=== PATIENT | male | born 1940 | race Asian ===

== ENCOUNTER 2019-05-02 02:06 | Inpatient (IN) | payer MEDICARE, MEDICAID ==
[2019-05-02] MEDS ORDERED: NS 0.9% 1000 ML** 1,000 ML IV ONE ×3 (02:23→12:50)
--- NOTE | 2019-05-02 02:40 | ED ---
Complex/Multi-Sys Presentation - HPI Summary HPI Summary: Pt is a 79 y/o M presenting to the ED brought in by EMS from [facility] for decreased oxygen saturation and possible fall. Per EMS, staff at [place] assumed the pt fell because he was found between two beds in his room. Staff report his SaO2 was in the 70s on room air. EMS reports SaO2 100% on 2L. Per EMS , pt denies pain. Via an card fixer, the pt states that he remembers falling. He does not quite remember what happened tonight, but he knows he fell and hit his head. He denies any myalgia or headache. The pt is not on hospice, in the area because his child works here. He is agreeable with going home if his CT scan is normal. - History Of Current Complaint Chief Complaint: EDAltMentalStatus Hx Obtained From: Patient, EMS, Power Plant Manager Onset/Duration: Gradual Onset, Lasting Hours, Resolved Timing: Hours Severity Currently: Mild Severity Initially: Mild Associated Signs And Symptoms: Negative: Headache - Allergies/Home Medications Allergies/Adverse Reactions: Allergies Allergy/AdvReac Type Severity Reaction Status Date / Time No Known Allergies Allergy Verified 11/20/14 12:38 PMH/Surg Hx/FS Hx/Imm Hx Previously Healthy: Yes Endocrine/Hematology History: Reports: Hx Diabetes Cardiovascular History: Reports: Hx Hypertension History: Reports: Other Problems/Disorders - URINARY BLEEDING LAST TUESDAY SEEN IN ER Sensory History: Reports: Hx Contacts or Glasses - GLASSES Denies: Hx Hearing Aid Opthamlomology History: Reports: Hx Contacts or Glasses - GLASSES - Surgical History Surgery Procedure, Year, and Place: surgery on prostate Hx Anesthesia Reactions: No Infectious Disease History: Yes Infectious Disease History: Reports: Hx Hepatitis - HEPATITIS C 20 YRS AGO Denies: Traveled Outside the [place] in Last 30 Days - Family History Known Family History: Negative: Diabetes - Social History Lives: [place] Alcohol Use: None Hx Substance Use: No Substance Use Type: Reports: None Hx Tobacco Use: No Smoking Status (MU): Never Smoked Tobacco Have You Smoked in the Last Year: No Review of Systems Negative: Myalgia Negative: Headache All Other Systems Reviewed And Are Negative: Yes Physical Exam - Summary Physical Exam Summary: Constitutional: Emaciated. Alert. (-) Distressed Skin: Warm, Dry, jaundiced. HENT: Normocephalic; Atraumatic Eyes: Conjunctiva normal Neck: Musculoskeletal ROM normal neck. (-) JVD, (-) Stridor, (-) Tracheal deviation Cardio: Rhythm regular, rate normal, Heart sounds normal; Intact distal pulses; Radial pulses are 2+ and symmetric. (-) Murmur Pulmonary/Chest wall: Effort normal. (-) Respiratory distress, (-) Wheezes, (-) Rales Abd: Soft, (-) tenderness, (-) Distension, (-) Guarding, (-) Rebound Musculoskeletal: (-) Edema Lymph: (-) Cervical adenopathy Neuro: Alert, Oriented x3 Psych: Mood and affect Normal Triage Information Reviewed: Yes Vital Signs On Initial Exam: Initial Vitals Temp Pulse Resp BP Pulse Ox 97 F 68 18 93/41 100 05/02/19 02:15 05/02/19 02:15 05/02/19 02:15 05/02/19 02:15 05/02/19 02:15 Vital Signs Reviewed: Yes Procedures - Sedation Patient Received Moderate/Deep Sedation with Procedure: No - Central Line Right Jugular Triple Lumen Central Venous Catheter Central Line Lumen: triple Central Line Procedure: betadine prep, sterile drapes applied, sterile dressing applied Central Line Position: internal jugular (R) Anesthesia: Lidocaine cc's of anesthesia: 3 Complications: none Central Line Post Position: sutured, good blood return, position confirmed w/ CXR Diagnostics - Vital Signs Vital Signs Temp Pulse Resp BP Pulse Ox 05/02/19 02:15 97 F 68 18 93/41 100 - Laboratory Result Diagrams: 05/02/19 04:34 05/02/19 05:55 Lab Statement: Any lab studies that have been ordered have been reviewed, and results considered in the medical decision making process. - Radiology CXR Radiology Interpretation Completed By: ED Physician Summary of Radiographic Findings: No acute process. Pending official radiology report. - CT Brain CT CT Interpretation Completed By: Radiologist Summary of CT Findings: 1. There is age-related diffuse cerebral and cerebellar volume loss and chronic microvascular ischemic disease. 2. No acute intracranial pathology. ED physician has reviewed this report. Re-Evaluation - Re-Evaluation 1st re-eval Re-Evaluation Time: 03:45 Change: Unchanged Comment: Family at bedside. They state he was treated in [place] 1 month ago, but his body did not react well to 1 week of chemotherapy. He is not on hospice , and they think that staff [facility] has not been watching him properly. The pts family would like fluid resuscitation and would prefer that the pt be admitted to the hospital. Complex Multi-Symp Course/Dx Course Of Treatment: Patient is here with hypotension from the rehabilitation for the rehabilitation facility. Patient also had a mechanical fall [address] Patient negative CT head performed. Patient had no complaints outside of mild cough. Patient appeared emaciated and jaundiced. Patient was given 2 L IV fluid with no improvement in his pressure. After patient arrived, family came and discussed his goals of care. They wanted everything but intubation and CPR. Patient had labs performed which showed worsening creatinine, TB bili , anemia, LFTs. Patient had a lactate of 3.3 which is likely due to decreased clearance but was given antibiotics empirically. Patient was given 12.5 g of albumin with no changes blood pressure. Patient had a central line placed for Levophed. Patient was admitted to the ICU - Diagnoses Provider Diagnoses: Fall, Liver cancer - Critical Care Time Critical Care Time: 75-104 min Discharge ED - Sign-Out/Discharge Documenting (check all that apply): Patient Departure - Discharge Plan Condition: Critical Disposition: ADMITTED TO [facility] Referrals: Pb Garcia MD [Primary Care Provider] - - Billing Disposition and Condition Condition: CRITICAL Disposition: Admitted to [facility] - Attestation Statements Document Initiated by Albaro: Yes Documenting Scribe: Khushi Sims Provider For Whom Albaro is Documenting (Include Credential): Tyler Cisneros MD. Scribe Attestation: Khushi Mendez scribed for Tyler Cisneros MD. on 05/02/19 at 0639. Scribe Documentation Reviewed: Yes Provider Attestation: The documentation as recorded by the Khushi fox accurately reflects the service I personally performed and the decisions made by me, Tyler Cisneros MD. Status of Scrsmith Document: Viewed Consult Consult: 527 - I spoke with Dr. Mccray who recommended waiting to speak with the gallery assistant. [phone] - I spoke with Dr. Saldivar about the pt's condition who accepts the pt to the ICU and would like Dr. Mccray to place admission orders. 38 - Dr. Mccray agrees to put in the admission orders.
[2019-05-02] MEDS ORDERED: Albumin Human 5%* 12.5 GM/250 ML BTL IV ONE ×3 (04:26→17:44)
[2019-05-02] MEDS ORDERED: Norepinephrine 16MCG/ML IVPRE* 4,000 MCG/250 ML BAG IV ONE ×2 (04:39→06:00)
[2019-05-02 04:50] LABS: ABS Lymphocytes 1.1 10^3/ul (1.0-4.8); ABS Monocytes 0.7 10^3/ul (0-0.8); ABS Neutrophils 8.8 10^3/ul (1.5-7.7); ABS Nucleated RBC 0.1 10^3/ul; Hematocrit 34 % (42-52); Hemoglobin 11.1 g/dL (14.0-18.0); Lymphocyte % 10.4 %; Mean Corpuscular HGB Conc 33 g/dL (31-36); Mean Corpuscular Hemoglobin 33 pg (27-31); Mean Corpuscular Volume 100 fL (80-94); Nucleated Red Blood Cells % 0.6; Platelet Count 159 10^3/uL (150-450); Red Blood Count 3.38 10^6 /uL (4.18-5.48); Red Cell Distribution Width 25 % (10-15); White Blood Count 10.6 10^3/uL (3.5-10.8)
[2019-05-02 04:53] LABS: INR 2.64 (0.82-1.09)
[2019-05-02 04:59] LABS: Albumin 1.9 g/dL (3.2-5.2); CO2 Carbon Dioxide 17 mmol/L (22-32); Calcium 8.1 mg/dL (8.6-10.3); Chloride 102 mmol/L (101-111); Sodium 130 mmol/L (135-145)
[2019-05-02 05:05] LABS: ALT 287 U/L (7-52); Albumin/Globulin Ratio 0.5 (1-3); Alkaline Phosphatase 740 U/L (34-104); BUN/Creatinine Ratio 33.9 (8-20); Blood Urea Nitrogen 77 mg/dL (6-24); EGFR African American 33.9 (>60); Globulin 3.6 g/dL (2-4); Glucose 84 mg/dL (70-100); Total Protein 5.5 g/dL (6.4-8.9)
[2019-05-02 05:10] LABS: Anion Gap 11 mmol/L (2-11)
[2019-05-02] MEDS ORDERED: Cefepime(*) 1 GM in NS 0.9% 50 ML* 50 ML IVPB ONE (05:20)
[2019-05-02] MEDS ORDERED: Norepinephrine 16MCG/ML IVPRE* 4,000 MCG/250 ML BAG IV SCH (06:00)
[2019-05-02] MEDS ORDERED: NS 0.9% 1000 ML** 1,000 ML IV SCH (06:45)
[2019-05-02] MEDS ORDERED: Vancomycin(*) 1,000 MG in NS 0.9% 250 ML* 250 ML IVPB ONE (08:52)
[2019-05-02 08:57] LABS: Urine Appearance Turbid; Urine Bacteria Absent (Absent); Urine Bilirubin 1+ (Negative); Urine Blood 2+ (Negative); Urine Color Amber; Urine Glucose Negative (Negative); Urine Ketones Negative (Negative); Urine Nitrite Negative (Negative); Urine Protein 1+(30 mg/dL) (Negative); Urine Red Blood Cell Trace(0-2/hpf) (Absent); Urine Specific Gravity 1.017 (1.010-1.030); Urine Squamous Epithelial Cell Present (Absent); Urine Urobilinogen Positive (Negative); Urine White Blood Cell 2+(11-20/hpf) (Absent)
[2019-05-02] MEDS ORDERED: Vancomycin per Pharmacy* NOTE FOLLOW UP SCH (09:00)
--- NOTE | 2019-05-02 10:38 | HP ---
H&P (Free Text) History and Physical: History and Physical -- Critical Care HPI: 79y M w/pmhx of DM, HTN, Hep C with Liver Cancer, had a course of chemotherapy at [facility] but not tolerated, now in [place] as DNR/DNI; he comes to hospital after fall at long-term. He was found by staff at ~2-3am, awake, on floor, no distress. Noted to have oxygen sats in 70s, and told to be hypotensive. He was sent to hospital, hypotensive 70s, not tachy, temp 96.5. He was started on sepsis protocol, given cefepime. CT abd/chest/pelvis demonstrated suspected RLL consolidation with pleural effusion. He is awake, alert. Family at bedside. He states no n/v/abd pain. No chest pain/sob. Cough+ for a few days. Decreased appetite for many weeks now. No fever/chills. In ER, started on sepsis protocol. Then started on levophed through central venous line for shock. ED/floor Course: as above ROS: negative except for pertinent positives mentioned above PMHx: DM, HTN, Hep C with Liver Cancer, had a course of chemotherapy at [facility] but not tolerated, now in NH as DNR/DNI PSHx: prostate Family History: none significant Social History: Alcohol-no, Smoking-no, Drug use-no; lives in [place], DNR/DNI as per son. Allergies: Allergies Allergy/AdvReac Type Severity Reaction Status Date / Time No Known Allergies Allergy Verified 11/20/14 12:38 Home Medications: Lisinopril TAB* [Prinivil TAB*] 5 mg PO BID 11/13/14 [History Confirmed 05/02/19 ] Finasteride [Proscar] 5 mg PO DAILY 11/15/14 [History Confirmed 05/02/19] Tele: NSR Vitals: Vital Signs Temp 96.3 F 05/02/19 09:01 Pulse 57 05/02/19 09:01 Resp 20 05/02/19 09:01 BP 89/47 05/02/19 09:01 Pulse Ox 97 05/02/19 09:01 Intake & Output 05/01/19 05/02/19 05/02/19 18:59 06:59 18:59 Intake Total 1999 Output Total 115 Balance 1999 - Weight 40.823 kg 53.6 kg Intake: IV Fluids 1999 Output: Mills 15 Residual 100 Mills 16 Fr Temperature 100 Probe O2/Vent: NC Infusions: levophed 10, NS 100cc/hr Current Medications: Cefepime HCl (Maxipime 1 Gm In Dextrose Duplex (*)) 1 gm in 50 mls @ 100 mls/ hr IV Q24HR [facility] Norepinephrine Bitartrate (Levophed 16 Mcg/Ml Premix*) 4,000 mcg in 250 mls @ 37.5 mls/hr IV .INITIAL RATE [facility]; Protocol Pharmacy Consult (Vancomycin Per Pharmacy*) 1 note FOLLOW UP .VANC PER PHARMACY [facility]; Protocol Physical Exam: Constitutional: awake, alert, no distress, no diaphoresis Head: normocephalic, atraumatic Eyes: no pallor, Icterus++ ENT: moist mucous membranes Neck: soft, supple, no jvd, no stridor CVS: normal rate, regular, no murmur Chest/Resp: bilateral air entry, no rhales, no wheeze, no rhonchi, no acc muscle use Abdomen/GI: soft, nontender, slightly firm, nondistended, BS+ Ext/Msk: warm, pulses+, no edema Skin: intact, warm Neuro: awake, alert, orientedx3, moving all extremities, no gross focal deficit Psych: normal affect Labs: Laboratory Results - last 24 hr 05/02/19 05/02/19 05/02/19 04:34 04:34 04:34 WBC 10.6 RBC 3.38 L Hgb 11.1 L Hct 34 L MCV 100 H MCH 33 H MCHC 33 RDW 25 H Plt Count 159 MPV 8.0 Neut % (Auto) 83.2 Lymph % (Auto) 10.4 Barton % (Auto) 6.3 Eos % (Auto) 0.0 Baso % (Auto) 0.1 Absolute Neuts (auto) 8.8 H Absolute Lymphs (auto) 1.1 Absolute Monos (auto) 0.7 Absolute Eos (auto) 0.0 Absolute Basos (auto) 0.0 Absolute Nucleated RBC 0.1 Nucleated RBC % 0.6 INR (Anticoag Therapy) Sodium 130 L Potassium TNP Chloride 102 Carbon Dioxide 17 L Anion Gap 11 BUN 77 H Creatinine 2.27 H Est GFR ( Amer) 33.9 Est GFR (Non-Af Amer) 28.0 BUN/Creatinine Ratio 33.9 H Glucose 84 Lactic Acid Calcium 8.1 L Total Bilirubin 9.50 H AST TNP ALT 287 H Alkaline Phosphatase 740 H Ammonia TNP Total Protein 5.5 L Albumin 1.9 L Globulin 3.6 Albumin/Globulin Ratio 0.5 L Lipase 60 Urine Color Urine Appearance Urine pH Ur Specific [place] Urine Protein Urine Ketones Urine Blood Urine Nitrate Urine Bilirubin Urine Urobilinogen Ur Leukocyte Esterase Urine WBC (Auto) Urine RBC (Auto) Ur Squamous Epith Cells Urine Bacteria Hyaline Casts Urine Glucose 05/02/19 05/02/19 05/02/19 04:34 04:34 05:55 WBC RBC Hgb Hct MCV MCH MCHC RDW Plt Count MPV Neut % (Auto) Lymph % (Auto) Barton % (Auto) Eos % (Auto) Baso % (Auto) Absolute Neuts (auto) Absolute Lymphs (auto) Absolute Monos (auto) Absolute Eos (auto) Absolute Basos (auto) Absolute Nucleated RBC Nucleated RBC % INR (Anticoag Therapy) 2.64 H Sodium Potassium 5.0 Chloride Carbon Dioxide Anion Gap BUN Creatinine Est GFR ( Amer) Est GFR (Non-Af Amer) BUN/Creatinine Ratio Glucose Lactic Acid 3.3 H* Calcium Total Bilirubin AST 883 H ALT Alkaline Phosphatase Ammonia Total Protein Albumin Globulin Albumin/Globulin Ratio Lipase Urine Color Urine Appearance Urine pH Ur Specific [place] Urine Protein Urine Ketones Urine Blood Urine Nitrate Urine Bilirubin Urine Urobilinogen Ur Leukocyte Esterase Urine WBC (Auto) Urine RBC (Auto) Ur Squamous Epith Cells Urine Bacteria Hyaline Casts Urine Glucose 05/02/19 05/02/19 05/02/19 05:55 08:36 08:56 WBC RBC Hgb Hct MCV MCH MCHC RDW Plt Count MPV Neut % (Auto) Lymph % (Auto) Barton % (Auto) Eos % (Auto) Baso % (Auto) Absolute Neuts (auto) Absolute Lymphs (auto) Absolute Monos (auto) Absolute Eos (auto) Absolute Basos (auto) Absolute Nucleated RBC Nucleated RBC % INR (Anticoag Therapy) Sodium Potassium Chloride Carbon Dioxide Anion Gap BUN Creatinine Est GFR ( Amer) Est GFR (Non-Af Amer) BUN/Creatinine Ratio Glucose Lactic Acid 3.0 H* Calcium Total Bilirubin AST ALT Alkaline Phosphatase Ammonia 85 H Total Protein Albumin Globulin Albumin/Globulin Ratio Lipase Urine Color [place] Urine Appearance Turbid Urine pH 5.0 Ur Specific [place] 1.017 Urine Protein 1+(30 mg/dl) A Urine Ketones Negative Urine Blood 2+ A Urine Nitrate Negative Urine Bilirubin 1+ A Urine Urobilinogen Positive A Ur Leukocyte Esterase Negative Urine WBC (Auto) 2+(11-20/hpf) A Urine RBC (Auto) Trace(0-2/hpf) Ur Squamous Epith Cells Present A Urine Bacteria Absent Hyaline Casts Present A Urine Glucose Negative 05/02/19 08:56 WBC RBC Hgb Hct MCV MCH MCHC RDW Plt Count MPV Neut % (Auto) Lymph % (Auto) Barton % (Auto) Eos % (Auto) Baso % (Auto) Absolute Neuts (auto) Absolute Lymphs (auto) Absolute Monos (auto) Absolute Eos (auto) Absolute Basos (auto) Absolute Nucleated RBC Nucleated RBC % INR (Anticoag Therapy) Sodium Potassium Chloride Carbon Dioxide Anion Gap BUN Creatinine Est GFR ( Amer) Est GFR (Non-Af Amer) BUN/Creatinine Ratio Glucose Lactic Acid Calcium 8.0 L Total Bilirubin AST ALT Alkaline Phosphatase Ammonia Total Protein Albumin Globulin Albumin/Globulin Ratio Lipase Urine Color Urine Appearance Urine pH Ur Specific [place] Urine Protein Urine Ketones Urine Blood Urine Nitrate Urine Bilirubin Urine Urobilinogen Ur Leukocyte Esterase Urine WBC (Auto) Urine RBC (Auto) Ur Squamous Epith Cells Urine Bacteria Hyaline Casts Urine Glucose Imaging: Ct brain 05/[address] chest/abd/pelvis 05/02 reviewed report; Right LL consolidation/atelectasis with pleural effusion+, midl atelectasis on left lower lobe; thickening of meredith of asc/desc colon Assessment: 79y M w/pmhx of DM, HTN, Hep C with Liver Cancer, had a course of chemotherapy at [facility] but not tolerated, now in [place] as DNR/DNI; he comes to hospital after fall at long-term. He was found by staff at ~2-3am, awake, on floor, no distress. Noted to have oxygen sats in 70s, and told to be hypotensive. He was sent to hospital, hypotensive 70s, not tachy, temp 96.5. He was started on sepsis protocol, given cefepime. CT abd/chest/pelvis demonstrated suspected RLL consolidation with pleural effusion. He is awake, alert. Family at bedside. He states no n/v/abd pain. No chest pain/sob. Cough+ for a few days. Decreased appetite for many weeks now. started on pressors in ER. -Severe Sepsis with Shock -suspected RLL pneumonia -Right pleural effusion -ascending/descending colitis -Coagulopathy -LUISA -Elevated LFTs -hyponatremia -Liver Cancer Hep C Plan: Neuro- -awake, alert -Delirium prec; avoid BDZ CVS- -Severe sepsis, shock; suspected from RLL pneumonia -pending cultures -on levophed infusion -cont NS 100cc/hr -IV abx -hold antihypertensives -Titrate Pressors to Maintain MAP>65 Resp- -on RA, no distress -no wheeze/cough -CT with RLL atelectasis/consol + effusion -IV abx -Wean Fio2 to keep sat>92% -Bronchodilators PRN, Aspiration prec ID- temp 96.6, wbc 10; LA elevated which may be from sepsis or poor clearance -CT chest with RLL consol/atelec + effusion -sputum culture -blood cx pending -check legionella urine ag -IV cefepime 1gm q24 (day#1) (renal dosing), vanco 1g with pharm followup (day#1 ) GI- -start diabetic soft diet -noted liver cancer; did not tolerate chemo in february; now off -noted elevated LFTs; from sepsis vs liver cancer -colitis of asc and desc colon; no diarrhea noted; no n/v -IV abx -GI prophylaxis Renal- -LUISA, multifactorial from sepsis -K 5.0 -metabolic acidosis + elevated LA; IVF hydration; possibel source GI vs sepsis -cont NS 100cc/hr -strict I/O, replete to keep K>4, Mg>2 -mills as indicated Heme- anemia mild; hg 11 -plt okay -coagulopathy noted INR 2.6; sepsis? underlying liver disease? no overt bleeding noted Endo- Maintain BG<200, insulin protocol as needed. check hba1c and tsh. Musculsk- pressure ulcer prophylaxis. Bedrest. Wounds- none Nutrition- diabetic soft diet today DVT prophylaxis: SCD GI prophylaxis: none Central Line: [facility] 05/02 Arterial Line: no Mills Cathetor: yes Disposition: Admit to ICU; Expected LOS>2 midnights; Patient requires Critical Care/ICU for severe sepsis with shock, LUISA, elevated LFTs, colitis Patient Clinical Status: guarded, stable Code Status: DNR/DNI discussed plan with Son and daughter at bedside, all questions answered. Total Critical Care time is 55 minutes, excluding procedures/teaching Gigi Saldivar MD Cylinder Loader (Electronically Signed)
[2019-05-02] MEDS ORDERED: Dextrose 50% VIAL 50 ml IV PUSH PRN ×2 (11:10→17:02)
[2019-05-02] MEDS: Norepinephrine 16MCG/ML IVPRE* 4,000 MCG/250 ML BAG IV SCH ×3 (11:59→21:23)
[2019-05-02] MEDS: NS 0.9% 1000 ML** 1,000 ML IV SCH ×2 (11:59→18:14)
[2019-05-02 12:10] LABS: ABS Lymphocytes 0.7 10^3/ul (1.0-4.8); ABS Monocytes 0.7 10^3/ul (0-0.8); ABS Neutrophils 10.9 10^3/ul (1.5-7.7); ABS Nucleated RBC 0.1 10^3/ul; Hematocrit 32 % (42-52); Hemoglobin 10.8 g/dL (14.0-18.0); Mean Corpuscular HGB Conc 34 g/dL (31-36); Mean Corpuscular Hemoglobin 33 pg (27-31); Mean Corpuscular Volume 99 fL (80-94); Mean Platelet Volume 7.6 fL (7.4-10.4); Nucleated Red Blood Cells % 0.4; Platelet Count 194 10^3/uL (150-450); Red Blood Count 3.25 10^6 /uL (4.18-5.48); Red Cell Distribution Width 25 % (10-15); White Blood Count 12.4 10^3/uL (3.5-10.8)
[2019-05-02] MEDS: Insulin LISPRO* 1 UNITS UNIT SUBCUT SCH ×3 (12:17→21:11)
[2019-05-02 12:27] LABS: Albumin/Globulin Ratio 0.6 (1-3); BUN/Creatinine Ratio 34.7 (8-20); Calcium 8.1 mg/dL (8.6-10.3); EGFR African American 36.4 (>60); EGFR Non-African American 30.1 (>60); Globulin 3.5 g/dL (2-4); Magnesium 2.3 mg/dL (1.9-2.7); Total Bilirubin 10.6 mg/dL (0.2-1.0); Total Protein 5.5 g/dL (6.4-8.9)
[2019-05-02 12:28] LABS: Potassium 5.3 mmol/L (3.5-5.0)
[2019-05-02 13:27] LABS: TSH (Thyroid Stimulating Horm) 5.03 mcIU/mL (0.34-5.60)
[2019-05-02] MEDS: metroNIDAZOLE IV 500 MG/100ML* 500 MG/100 ML BAG IVPB SCH ×2 (13:58→22:44)
[2019-05-02] MEDS ORDERED: Vasopressin* 100 UNITS in D5W 250 ML BAG* 245 ML IV SCH (15:30)
--- NOTE | 2019-05-02 17:43 | PN ---
Progress Note - Progress Note Date of Service: 05/02/19 Note: called for chest pain, shear operator automatic line in use states chest pain, shortness of breath. he is not tachypneic, not pointing to a direct spot, not assoc with inspiration. BP and HR stable states abd pain but not pointing, a few min later all pain resolved. EKG - ?junctional rhythm but no st/t changes noted CXR stat - no congestion/infiltrate noted noted peripheral mottling++ given 1 L NS bolus already. started vaso, on levo already. give album 5% 500cc x1 now. uop noted 15cc/hr Gigi Saldivar MD
--- NOTE | 2019-05-02 21:46 | PN ---
Progress Note - Progress Note Date of Service: 05/02/19 Note: Critical Care LA continues to climb to 5 on levop and vaso BP 90-100s, alert, no distress, no complaints, no timbo now but tenderness+ Son came back., CT abd/pelvis w/o ordered; no change from prior, no new free air, similar ascites noted. discussed that sepsis may be worsening, potential for ischemic gut also there, uop has been declining. not a good surgical candidate given liver cancer. he would not like to put him through any surgery either. will cont pressors, IV abx, fluids. watchful waiting overnight; by morning will know if improvement or not. check LA in AM check mixed venous gas trend CVP CC time 45 min Total of 100min for the total Gigi Saldivar Md Arborist
[2019-05-02 23:23] LABS: Calcium 7.7 mg/dL (8.6-10.3); EGFR African American 39.9 (>60)
[2019-05-02] MEDS ORDERED: Morphine INJ* 2 MG/ML 1 ML SYRINGE (TWO MG - NEW SYRINGE VERSION) IV ONE (23:59)
[2019-05-02] MEDS ORDERED: Morphine INJ* 4 MG/ML 1 ML SYRINGE (NEW SYRINGE VERSION) IV ONE (23:59)
[2019-05-03] MEDS: Norepinephrine 16MCG/ML IVPRE* 4,000 MCG/250 ML BAG IV SCH (02:06)
[2019-05-03] MEDS ORDERED: Lorazepam PYXIS KEY PRN ×4 (03:12→17:38)
[2019-05-03] MEDS ORDERED: LORazepam INJ* 2 MG/ML 1 ML VIAL IV PUSH ONE ×4 (03:12→18:15)
[2019-05-03] MEDS: NS 0.9% 1000 ML** 1,000 ML IV SCH (04:10)
[2019-05-03] MEDS ORDERED: Morphine INJ* 2 MG/ML 1 ML SYRINGE (TWO MG - NEW SYRINGE VERSION) IV PRN (04:31)
[2019-05-03] MEDS ORDERED: Morphine INJ* 2 MG/ML 1 ML SYRINGE (TWO MG - NEW SYRINGE VERSION) ONE (04:37)
[2019-05-03 05:07] LABS: Hematocrit 28 % (42-52); Hemoglobin 8.9 g/dL (14.0-18.0); Mean Corpuscular HGB Conc 32 g/dL (31-36); Mean Corpuscular Hemoglobin 33 pg (27-31); Mean Corpuscular Volume 105 fL (80-94); Mean Platelet Volume 7.7 fL (7.4-10.4); Platelet Count 164 10^3/uL (150-450); Red Blood Count 2.67 10^6 /uL (4.18-5.48); Red Cell Distribution Width 26 % (10-15); White Blood Count 11.9 10^3/uL (3.5-10.8)
[2019-05-03 05:29] LABS: INR 5.33 (0.82-1.09)
[2019-05-03 05:34] LABS: ALT 301 U/L (7-52); Albumin 2.2 g/dL (3.2-5.2); Albumin/Globulin Ratio 0.8 (1-3); Alkaline Phosphatase 565 U/L (34-104); BUN/Creatinine Ratio 36.7 (8-20); Blood Urea Nitrogen 76 mg/dL (6-24); Calcium 7.7 mg/dL (8.6-10.3); Chloride 109 mmol/L (101-111); EGFR African American 37.7 (>60); EGFR Non-African American 31.1 (>60); Globulin 2.8 g/dL (2-4); Glucose 57 mg/dL (70-100); Indirect Bilirubin 3.6 mg/dL (0.3-1.0); Magnesium 2.3 mg/dL (1.9-2.7); Phosphorus 6.2 mg/dL (2.5-5.0); Sodium 136 mmol/L (135-145)
[2019-05-03 05:39] LABS: CO2 Carbon Dioxide < 7 mmol/L (22-32)
[2019-05-03 05:51] LABS: AST 1304 U/L (13-39); Potassium 5.4 mmol/L (3.5-5.0)
[2019-05-03] MEDS: metroNIDAZOLE IV 500 MG/100ML* 500 MG/100 ML BAG IVPB SCH ×2 (06:45→18:54)
[2019-05-03 08:16] VITALS: BP 99/62
[2019-05-03] MEDS ORDERED: Cefepime 1 GM in Dextrose(*) 1 GM/50 ML BAG IV SCH (09:00)
[2019-05-03] MEDS ORDERED: HYDROmorphone INJ1* 1 MG/ML SYRINGE ONE (09:35)
--- NOTE | 2019-05-03 09:56 | PN ---
Progress Note - Progress Note Date of Service: 05/03/19 Note: Progress Note -- Critical Care 24 hour events -increased pressors overnight, on levo and vaso -not well responsive, moanin gin pain -i was here last night, repeat CT abd done, no new findings -dsicussion with son at bedside, plan for conservative tx overnight -overnight increased LA production -more hypothermic 92-93F now -son and daughter at bedside, we discussed current status and medical problems. discussion about GOC and comfort measures had. They have agreed to start comfort measures, and withdraw pressor support given his significant decline overnight Tele: NSR Vitals: Vital Signs Temp 92.1 F 05/03/19 08:01 Pulse 25 05/03/19 07:01 Resp 23 05/03/19 09:39 BP 99/62 05/03/19 07:45 Pulse Ox 75 05/03/19 06:46 Intake & Output 05/02/19 05/03/19 05/03/19 18:59 06:59 18:59 Intake Total 1749.4 2428 Output Total 285 223 Balance 1464.4 2205 Weight 53.6 kg Intake: IV Fluids 1220.4 914 ABX - FLAGYL 39.4 NS (0.9%) 1181 914 IVPB 264 ABX - VANCOMYCIN 264 Medicated IV 265 1514 CC - Norepinephrine/ 265 1056 Levophed vasopressin 458 Output: Urine 70 Mills 185 153 Residual 100 Mills 16 Fr Temperature 100 Probe O2/Vent: RA Infusions: levophed , vaso, NS 100cc/hr Current Medications: Dextrose (Dextrose 50% Vial 50 Ml*) 25 ml IV PUSH .FOR FS < 60 - SS PRN PRN Reason: FS < 60 Last Admin: 05/03/19 05:40 Dose: 25 ml Dextrose (Dextrose 50% Vial 50 Ml*) 50 ml IV PUSH ONCE PRN PRN Reason: FS < 60 Stop: 05/03/19 17:01 Last Admin: 05/02/19 17:13 Dose: 50 ml Hydromorphone HCl (Dilaudid Inj1s*) 1 mg IV SLOW PU Q15M PRN PRN Reason: PAIN - SEVERE Cefepime HCl (Maxipime 1 Gm In Dextrose Duplex (*)) 1 gm in 50 mls @ 100 mls/ hr IV Q24HR [facility] Norepinephrine Bitartrate (Levophed 16 Mcg/Ml Premix*) 4,000 mcg in 250 mls @ 37.5 mls/hr IV .INITIAL RATE [facility]; Protocol Last Admin: 05/03/19 02:06 Dose: 33.8 mls/hr Sodium Chloride (Ns 0.9% 1000 Ml) 1,000 mls @ 100 mls/hr IV PER RATE [facility] Last Admin: 05/03/19 04:10 Dose: 100 mls/hr Metronidazole/Sodium Chloride (Flagyl 500 Mg Ivpb*) 500 mg in 100 mls @ 100 mls /hr IVPB Q8H [facility] Last Admin: 05/03/19 06:45 Dose: 100 mls/hr Vancomycin HCl 1,000 mg/ (Sodium Chloride) 250 mls @ 166.667 mls/hr IVPB Q24H [facility] Vasopressin 100 units/ (Dextrose) 250 mls @ 6 mls/hr IV Q24H [facility]; Protocol Last Admin: 05/02/19 16:15 Dose: 6 mls/hr Insulin Human Lispro (Humalog*) 0 units SUBCUT FS ACHS ICU [facility]; Protocol Last Admin: 05/02/19 21:11 Dose: Not Given Miscellaneous (Ativan Pyxis Brown) 1 ea N/A .ATIVAN IV BROWN PRN PRN Reason: PYXIS BROWN Morphine Sulfate (Morphine Inj (Syringe))*) 2 mg IV ONCE PRN PRN Reason: PAIN - SEVERE Stop: 05/04/19 04:30 Last Admin: 05/03/19 04:38 Dose: 2 mg Pharmacy Consult (Vancomycin Per Pharmacy*) 1 note FOLLOW UP .VANC PER PHARMACY [facility]; Protocol Pharmacy Profile Note (Vancomycin Trough Check) 1 note FOLLOW UP 1130 ONE Stop: 05/05/19 11:31 Physical Exam: Constitutional: unresponsive, tachypnea+, pain+, no diaphoresis Head: normocephalic, atraumatic Eyes: no pallor, Icterus++ ENT: moist mucous membranes Neck: soft, supple, no jvd, no stridor CVS: normal rate, regular, no murmur Chest/Resp: bilateral air entry, no rhales, no wheeze, no rhonchi, no acc muscle use Abdomen/GI: soft, tender, slightly firm, nondistended, BS+ Ext/Msk: warm, pulses+, no edema Skin: intact, warm Neuro: not responsive, pupils reactive, not movign ext Psych: unable to assess Labs: Laboratory Results - last 24 hr 05/02/19 05/02/19 05/02/19 04:34 11:39 11:42 WBC 12.4 H RBC 3.25 L Hgb 10.8 L Hct 32 L MCV 99 H MCH 33 H MCHC 34 RDW 25 H Plt Count 194 MPV 7.6 Neut % (Auto) 88.2 Lymph % (Auto) 6.0 [place] % (Auto) 5.8 Eos % (Auto) 0.0 Baso % (Auto) 0.0 Absolute Neuts (auto) 10.9 H Absolute Lymphs (auto) 0.7 L Absolute Monos (auto) 0.7 Absolute Eos (auto) 0.0 Absolute Basos (auto) 0.0 Absolute Nucleated RBC 0.1 Nucleated RBC % 0.4 Hem Pathologist Commnt INR (Anticoag Therapy) VBG pH VBG pCO2 VBG pO2 VBG HCO3 VBG O2 Saturation VBG Base Excess Sodium Potassium Chloride Carbon Dioxide Anion Gap BUN Creatinine Est GFR ( Amer) Est GFR (Non-Af Amer) BUN/Creatinine Ratio Glucose POC Glucose (mg/dL) 87 Hemoglobin A1c Lactic Acid Calcium Phosphorus Magnesium Total Bilirubin Direct Bilirubin Indirect Bilirubin AST ALT Alkaline Phosphatase Total Creatine Kinase Total Protein Albumin Globulin Albumin/Globulin Ratio TSH 05/02/19 05/02/19 05/02/19 11:42 11:42 13:33 WBC RBC Hgb Hct MCV MCH MCHC RDW Plt Count MPV Neut % (Auto) Lymph % (Auto) [place] % (Auto) Eos % (Auto) Baso % (Auto) Absolute Neuts (auto) Absolute Lymphs (auto) Absolute Monos (auto) Absolute Eos (auto) Absolute Basos (auto) Absolute Nucleated RBC Nucleated RBC % Hem Pathologist Commnt INR (Anticoag Therapy) VBG pH VBG pCO2 VBG pO2 VBG HCO3 VBG O2 Saturation VBG Base Excess Sodium 132 L Potassium 5.3 H Chloride 105 Carbon Dioxide 16 L Anion Gap 11 BUN 74 H Creatinine 2.13 H Est GFR ( Amer) 36.4 Est GFR (Non-Af Amer) 30.1 BUN/Creatinine Ratio 34.7 H Glucose 75 POC Glucose (mg/dL) Hemoglobin A1c 5.2 Lactic Acid 3.9 H* Calcium 8.1 L Phosphorus Magnesium 2.3 Total Bilirubin 10.60 H Direct Bilirubin Indirect Bilirubin AST 961 H ALT 281 H Alkaline Phosphatase 651 H Total Creatine Kinase Total Protein 5.5 L Albumin 2.0 L Globulin 3.5 Albumin/Globulin Ratio 0.6 L TSH 5.03 05/02/19 05/02/19 05/02/19 16:51 18:23 18:25 WBC RBC Hgb Hct MCV MCH MCHC RDW Plt Count MPV Neut % (Auto) Lymph % (Auto) [place] % (Auto) Eos % (Auto) Baso % (Auto) Absolute Neuts (auto) Absolute Lymphs (auto) Absolute Monos (auto) Absolute Eos (auto) Absolute Basos (auto) Absolute Nucleated RBC Nucleated RBC % Hem Pathologist Commnt INR (Anticoag Therapy) VBG pH VBG pCO2 VBG pO2 VBG HCO3 VBG O2 Saturation VBG Base Excess Sodium Potassium Chloride Carbon Dioxide Anion Gap BUN Creatinine Est GFR ( Amer) Est GFR (Non-Af Amer) BUN/Creatinine Ratio Glucose POC Glucose (mg/dL) 63 L 148 H Hemoglobin A1c Lactic Acid 5.6 H* Calcium Phosphorus Magnesium Total Bilirubin Direct Bilirubin Indirect Bilirubin AST ALT Alkaline Phosphatase Total Creatine Kinase Total Protein Albumin Globulin Albumin/Globulin Ratio TSH 05/02/19 05/02/19 05/02/19 19:30 20:20 22:02 WBC RBC Hgb Hct MCV MCH MCHC RDW Plt Count MPV Neut % (Auto) Lymph % (Auto) [place] % (Auto) Eos % (Auto) Baso % (Auto) Absolute Neuts (auto) Absolute Lymphs (auto) Absolute Monos (auto) Absolute Eos (auto) Absolute Basos (auto) Absolute Nucleated RBC Nucleated RBC % Hem Pathologist Commnt INR (Anticoag Therapy) VBG pH VBG pCO2 VBG pO2 VBG HCO3 VBG O2 Saturation VBG Base Excess Sodium Potassium Chloride Carbon Dioxide Anion Gap BUN Creatinine Est GFR ( Amer) Est GFR (Non-Af Amer) BUN/Creatinine Ratio Glucose POC Glucose (mg/dL) 140 H 120 H 108 H Hemoglobin A1c Lactic Acid Calcium Phosphorus Magnesium Total Bilirubin Direct Bilirubin Indirect Bilirubin AST ALT Alkaline Phosphatase Total Creatine Kinase Total Protein Albumin Globulin Albumin/Globulin Ratio TSH 05/02/19 05/02/19 05/02/19 22:49 22:49 22:49 WBC RBC Hgb Hct MCV MCH MCHC RDW Plt Count MPV Neut % (Auto) Lymph % (Auto) [place] % (Auto) Eos % (Auto) Baso % (Auto) Absolute Neuts (auto) Absolute Lymphs (auto) Absolute Monos (auto) Absolute Eos (auto) Absolute Basos (auto) Absolute Nucleated RBC Nucleated RBC % Hem Pathologist Commnt INR (Anticoag Therapy) VBG pH 7.31 L VBG pCO2 16 L VBG pO2 47.0 H VBG HCO3 12.2 L VBG O2 Saturation 76.6 VBG Base Excess -15.5 L Sodium 134 L Potassium 5.0 Chloride 108 Carbon Dioxide 10 L* Anion Gap 16 H BUN 71 H Creatinine 1.97 H Est GFR ( Amer) 39.9 Est GFR (Non-Af Amer) 33.0 BUN/Creatinine Ratio 36.0 H Glucose 97 POC Glucose (mg/dL) Hemoglobin A1c Lactic Acid 7.0 H* Calcium 7.7 L Phosphorus Magnesium Total Bilirubin Direct Bilirubin Indirect Bilirubin AST ALT Alkaline Phosphatase Total Creatine Kinase 71 Total Protein Albumin Globulin Albumin/Globulin Ratio [facility] 05/03/19 05/03/19 05/03/19 00:20 02:10 03:52 WBC RBC Hgb Hct MCV MCH MCHC RDW Plt Count MPV Neut % (Auto) Lymph % (Auto) [place] % (Auto) Eos % (Auto) Baso % (Auto) Absolute Neuts (auto) Absolute Lymphs (auto) Absolute Monos (auto) Absolute Eos (auto) Absolute Basos (auto) Absolute Nucleated RBC Nucleated RBC % Hem Pathologist Commnt INR (Anticoag Therapy) VBG pH VBG pCO2 VBG pO2 VBG HCO3 VBG O2 Saturation VBG Base Excess Sodium Potassium Chloride Carbon Dioxide Anion Gap BUN Creatinine Est GFR ( Amer) Est GFR (Non-Af Amer) BUN/Creatinine Ratio Glucose POC Glucose (mg/dL) 99 88 77 Hemoglobin A1c Lactic Acid Calcium Phosphorus Magnesium Total Bilirubin Direct Bilirubin Indirect Bilirubin AST ALT Alkaline Phosphatase Total Creatine Kinase Total Protein Albumin Globulin Albumin/Globulin Ratio TSH 05/03/19 05/03/19 05/03/19 04:50 04:50 04:50 WBC 11.9 H RBC 2.67 L Hgb 8.9 L Hct 28 L MCV 105 H MCH 33 H MCHC 32 RDW 26 H Plt Count 164 MPV 7.7 Neut % (Auto) Lymph % (Auto) [place] % (Auto) Eos % (Auto) Baso % (Auto) Absolute Neuts (auto) Absolute Lymphs (auto) Absolute Monos (auto) Absolute Eos (auto) Absolute Basos (auto) Absolute Nucleated RBC Nucleated RBC % Hem Pathologist Commnt INR (Anticoag Therapy) VBG pH VBG pCO2 VBG pO2 VBG HCO3 VBG O2 Saturation VBG Base Excess Sodium 136 Potassium 5.4 H Chloride 109 Carbon Dioxide < 7 L* Anion Gap Not Reportable BUN 76 H Creatinine 2.07 H Est GFR ( Amer) 37.7 Est GFR (Non-Af Amer) 31.1 BUN/Creatinine Ratio 36.7 H Glucose 57 L POC Glucose (mg/dL) Hemoglobin A1c Lactic Acid 12.2 H* Calcium 7.7 L Phosphorus 6.2 H Magnesium 2.3 Total Bilirubin 10.80 H Direct Bilirubin 7.20 H Indirect Bilirubin 3.6 H AST 1304 H ALT 301 H Alkaline Phosphatase 565 H Total Creatine Kinase Total Protein 5.0 L Albumin 2.2 L Globulin 2.8 Albumin/Globulin Ratio 0.8 L TSH 05/03/19 05/03/19 04:50 06:05 WBC RBC Hgb Hct MCV MCH MCHC RDW Plt Count MPV Neut % (Auto) Lymph % (Auto) [place] % (Auto) Eos % (Auto) Baso % (Auto) Absolute Neuts (auto) Absolute Lymphs (auto) Absolute Monos (auto) Absolute Eos (auto) Absolute Basos (auto) Absolute Nucleated RBC Nucleated RBC % Hem Pathologist Commnt INR (Anticoag Therapy) 5.33 H* VBG pH VBG pCO2 VBG pO2 VBG HCO3 VBG O2 Saturation VBG Base Excess Sodium Potassium Chloride Carbon Dioxide Anion Gap BUN Creatinine Est GFR ( Amer) Est GFR (Non-Af Amer) BUN/Creatinine Ratio Glucose POC Glucose (mg/dL) 105 H Hemoglobin A1c Lactic Acid Calcium Phosphorus Magnesium Total Bilirubin Direct Bilirubin Indirect Bilirubin AST ALT Alkaline Phosphatase Total Creatine Kinase Total Protein Albumin Globulin Albumin/Globulin Ratio TSH Imaging: Ct brain 05/[address] chest/abd/pelvis 05/02 reviewed report; Right LL consolidation/atelectasis with pleural effusion+, midl atelectasis on left lower lobe; thickening of meredith of asc/desc colon CT abd 05/02 - reviewed, no new changes noted; ascites+ Assessment: 79y M w/pmhx of DM, HTN, Hep C with Liver Cancer, had a course of chemotherapy at [facility] but not tolerated, now in NH as DNR/DNI; he comes to hospital after fall at [facility]. He was found by staff at ~2-3am, awake, on floor, no distress. Noted to have oxygen sats in 70s, and told to be hypotensive. He was sent to hospital, hypotensive 70s, not tachy, temp 96.5. He was started on sepsis protocol, given cefepime. CT abd/chest/pelvis demonstrated suspected RLL consolidation with pleural effusion. He is awake, alert. Family at bedside. He states no n/v/abd pain. No chest pain/sob. Cough+ for a few days. Decreased appetite for many weeks now. started on pressors in ER. -Severe Sepsis with Shock -suspected RLL pneumonia -Right pleural effusion -ascending/descending colitis -Coagulopathy -LUISA -Elevated LFTs -hyponatremia -Liver Cancer Hep C Plan: Neuro- -progressive decline; delirium+; not well responsive; moaning in discomfort -Delirium prec; avoid BDZ CVS- -Severe sepsis, shock; suspected from RLL pneumonia -remains on pressors -possible source of LA production may be sepsis, colitis +/- ischemic colitis -olig/anuric now -cont NS 100cc/hr -IV abx -hold antihypertensives -Titrate Pressors to Maintain MAP>65 Resp- -on RA, no distress; more pain it seems, mild tachypnea+ but sats 90s -no wheeze/cough -CT with RLL atelectasis/consol + effusion -IV abx -Wean Fio2 to keep sat>92% -Bronchodilators PRN, Aspiration prec ID- temp 92, wbc 11; LA 12 -CT chest with RLL consol/atelec + effusion -CT abd 05/02 - colitis+ from AM imaging -blood cx pending - legionella neg -IV cefepime 1gm q24 (day#2) (renal dosing) GI- -NPO -noted liver cancer; did not tolerate chemo in february; now off -colitis of asc and desc colon; no diarrhea noted; no n/v; suspect abd source of LA production, liver? ischemic colitis? not a good surgical candidate either way, discussed with family. CT abd w/o contrast 05/02 without sig ne findings; but clinically this may be ischemic colit -elevated LFTs still, progressive rise, suspect ischemic injury vs sepsis -IV abx -GI prophylaxis Renal- -LUISA, multifactorial from sepsis; oliguric/anuric now -K 5.4 -metabolic acidosis + elevated LA; IVF hydration; possibel source GI vs sepsis; ischemic colitis? -cont NS 100cc/hr -strict I/O, replete to keep K>4, Mg>2 -mills as indicated Heme- anemia mild; hg 11 -plt okay -coagulopathy 5.4 , underlying liver disease now with ischemic hepatitis suspected Endo- Maintain BG<200, insulin protocol as needed. check hba1c and tsh. Musculsk- pressure ulcer prophylaxis. Bedrest. Wounds- none Nutrition- NPO DVT prophylaxis: SCD GI prophylaxis: none Central Line: RIJ 05/02 Arterial Line: no Mills Cathetor: yes Disposition: plan for comfort care, discussed with Son and Daughter at bedside , they have agreed for pain medication and withdrawal of Iv pressors. Patient Clinical Status: guarded, stable Code Status: DNR/DNI Total Critical Care time is 50 minutes, excluding procedures/teaching Gigi Saldivar MD [employer]etry[employer] Dissolver Operator (Electronically Signed)
[2019-05-03] MEDS ORDERED: Dextrose 50% Syringe 50 ML* 25 GM/50 ML SYRINGE IV PUSH PRN (10:00)
--- NOTE | 2019-05-03 10:00 | PN ---
Progress Note - Progress Note Date of Service: 05/03/19 Note: Comfort Care/Compassionate Wean Progress Note Patient is 79y M w/pmhx of DM, HTN, Hep C with Liver Cancer, had a course of chemotherapy at [facility] but not tolerated, now in NH as DNR/DNI; he comes [facility]. Admitted for suspected septic shock, RLL pneumonia but also now suspected to be infectious colitis vs ischemic colitis. he has progressively decline, increased pressor requirements needed, oliguric, increased LFTs and now with delirium. I have discussed current medical problems as well as goals of care with patient' s family/surrogate/healthcare proxy. The current treatment is not consistent with the goals and wishes of the the family and the patient, they have discussed DNR/DNI measures prior to admission and overall GOC. The family/surrogate has come to a decision to request for the withdrawal of life-sustaining treatment. The patient lacks capacity to make decisions on his/her own due to encephalopathy The family/Surrogate is in agreement that transitioning to comfort care pathway with withdrawal of ventilator support is in patient's best interest, and consistent with what their wishes would be in this medical situation. Given the patient's poor prognosis and unlikely change for meaningful recovery, this decision is reasonable, and I am in agreement. The discussion had all the details of a conversation to obtain an informed consent regarding, but not limited to, disclosure of the alternative to the withdrawal of life-sustaining treatment, and, the risks and benefits to the patient, thereby permitting the family to make an informed decision. I have discussed with them the process of withdrawal of pressors , and that the patient may not breath and blood pressure will decline, leading to a cardiac arrest in an unknown period of time. At the family's/Surrogate's request and in accordance with the patient's wishes , the life-sustaining treatment will be withdrawn. The patient's agent/family understands, that in all probability, the patient will . Order to stop pressors have been told to Nursing. - An opiate IV push PRN will be started for pain and resp distress. - Use of Benzodiazepines for severe respiratory distress as needed. - Use of atropine eye drops sublingually for increased secretions as needed - Antiemetics as needed for nausea/vomitting - Pastoral care support at bedside if they need Dr Gigi Saldivar Fiberglass Pipe Covering Supervisor
[2019-05-03] MEDS: HYDROmorphone INJ1* 1 MG/ML SYRINGE IV SLOW PU PRN ×5 (10:30→19:23)
[2019-05-03] MEDS ORDERED: HYDROmorphone INJ1* 1 MG/ML SYRINGE IV SLOW PU ONE ×2 (11:34→17:20)
[2019-05-03] MEDS ORDERED: Vancomycin(*) 1,000 MG in NS 0.9% 250 ML* 250 ML IVPB SCH (12:00)
--- NOTE | 2019-05-03 17:41 | PN ---
Progress Note - Progress Note Date of Service: 05/03/19 Note: COmfort care Has recieved multiple doses of dilaudid and ativan IV for respiratory distress and pain. He has slowed his respirations, now 12-14, more agonal appearing now. BP has remained 50s all day since pressors have been discontinued. HR 60-70s, sinus. He is unresponsive. Family has been at bedside all morning. Likley to become apneic and imminent in coming hours I suspect. No distress overtly is apparent like morning. Families questions were answered. Gigi Saldivar MD
[2019-05-03] MEDS: Insulin LISPRO* 1 UNITS UNIT SUBCUT SCH (20:04)
--- NOTE | 2019-05-04 01:46 | DS ---
SUMMARY: DATE OF ADMISSION: 05/02/19 DATE OF : 05/03/19 at 8:36 p.m. ADMISSION DIAGNOSES: 1. Sepsis with septic shock, initially suspected to be due to right lower lobe pneumonia. 2. Acute kidney injury, elevated LFTs. 3. Hyponatremia. 4. Liver cancer with hepatitis C. CAUSE OF : Severe sepsis with septic shock secondary to infectious colitis due to cirrhosis and hepatitis C. HOSPITAL COURSE: For full details of history of present illness, please refer the admission history and physical dictated by Dr. Gigi Saldivar. This was a 79 -year- old male who came in with altered mental status, he had had a fall, was noted to be in sepsis with septic shock and multiorgan failure with acute kidney injury, hyponatremia, elevated LFTs, elevated INR, hypotension. He was started on 2 pressors and started on broad-spectrum antibiotics. Initial CT scan was suspicious of right lower lobe pneumonia and also the colon was felt dilated, suspicious for infectious colitis. Given the patient's overall poor prognosis, the patient was already DNR/DNI, family meeting occurred and the patient was made comfort care. All his pressors were stopped on 05/03/19 and the patient was started on comfort measures with Dilaudid and Ativan as needed, and on 05/03/19 at 8:36 p.m., he was noted to be in asystole and he was pronounced. Family was already at bedside, who were all notified, and postmortem care was done. [id number]/[facility] #: [id number] MTDD
--- NOTE | 2019-05-04 16:26 | DS ---
Discharge Summary Patient Name: Bandar Thompson Date of Admission: 05/02/2019 Date of Discharge: 05/03/2019 Attending: Dr Gigi Saldivar (licensed psychologist manager) Consultants: - Admitting Diagnoses: 1- Severe Sepsis with Shock 2- Right lower lobe pneumonia 3- Colitis 4- Acute Kidney Injury 5- Elevated liver enzymes 6- Liver Cancer Discharge Diagnoses: 1- Severe Sepsis with Shock 2- Right lower lobe pneumonia 3- Suspected Ischemic Colitis 4- Acute Kidney Injury 5- Elevated liver enzymes 6- Acute Encephalopathy 7- Acute Respiratory distress 8- Liver Cancer HPI/Hospital Course: 79y M w/pmhx of DM, HTN, Hep C with Liver Cancer, had a course of chemotherapy at [facility] but not tolerated, now in NH as DNR/DNI; he comes to hospital after fall at [facility]. He was found by staff at ~2-3am, awake, on floor, no distress. Noted to have oxygen sats in 70s, and told to be hypotensive. He was sent to hospital, hypotensive 70s, not tachy, temp 96.5. He was started on sepsis protocol, given cefepime. CT abd/chest/pelvis demonstrated suspected RLL consolidation with pleural effusion. He is awake, alert. Family at bedside. He states no n/v/abd pain. No chest pain/sob. Cough+ for a few days. Decreased appetite for many weeks now. He was started on sepsis protocol with IV abx. Despite IVF resuscitations he was hypotensive, a central line was placed and he was started on Norepinephrine infusion for blood pressure support. Throughout 05/02 he continued to require more vasopressors, we added vasopressin, he received additional IVF boluses, maintained IVF infusion, but he developed rising Lactic acid levels, became more oliguric. He maintained a low systemic temp of 95-96 but still was awake without any respiratory distress or significant confusion. In the evening he had complaints of chest pain and abdominal pain, which an EKG showed no changes and the pain resolved without further intervention. He demonstrated a tender abdomen, in the setting of a Lactic acid of 5+, a CT of the abdomen was ordered and showed ascites, similar findings as prior but no further acute changes. I discussed his current status with the Son and daughter on the phone and they arrived to the hospital. I advised and we discussed that given his current clinical status he was progressively getting worse. There is a chance of ischemic bowel but contrast would be needed but he has acute renal failure, and that even if he did they would not like to pursue more aggressive or even surgical interventions. They advised medical therapy only and they were aware of his grave and declining status. Throught the night he worsened, LA laura further. By morning of 05/03 he was delirious, in pain, not well responsive, daughter and son at bedside. They wished to pursue comfort measures, control pain and stop all pressors and support. WE discussed this and as per their wishes as Surrogates, he was started on comfort measures with dilaudid for pain/resp distress and Ativan for distress, levophed/vasopressin infusions were discontinued on the morning of . He was not responsive, less distressed, hypotensive and declining on comfort care. He was pronounced on 05/03/2019 at 2036 with family at bedside Procedures/Imaging: Computer Tomography of Abdomen/pelvis without contrast ; see chart Laboratory/Data: see chart Discharge Medications: none Condition upon discharge: 05/03/2019 at 2036 Disposition: Code Status: DNR/DNI, comfort care Total Discharge time 35 minutes Gigi Saldivar MD [employer] Sales Counter Manager (Electronically Signed)
[2019-05-05] MEDS ORDERED: Vancomycin Trough Check NOTE FOLLOW UP ONE (11:30)
== END 2019-05-03 20:36 | disposition expired | DRG 871 ==
LOC: ED 02:06 → ICU 06:42
PROVIDERS: ADMIT Internal Medicine; ATTEND Internal Medicine
PROC: 05HM33Z Insertion of Infusion Device into Right Internal Jugular Vein, Percutaneous Approach (ICD-10-PCS; principal; 2019-05-02)
PROC: 3E033XZ Introduction of Vasopressor into Peripheral Vein, Percutaneous Approach (ICD-10-PCS; 2019-05-02)
DX: A41.9 Sepsis, unspecified organism (principal); R65.21 Severe sepsis with septic shock; J18.9 Pneumonia, unspecified organism; N17.9 Acute kidney failure, unspecified; K55.9 Vascular disorder of intestine, unspecified; C22.8 Malignant neoplasm of liver, primary, unspecified as to type; G93.40 Encephalopathy, unspecified; J90 Pleural effusion, not elsewhere classified; R18.8 Other ascites; E87.1 Hypo-osmolality and hyponatremia; D68.9 Coagulation defect, unspecified; E87.2 Acidosis; R74.8 Abnormal levels of other serum enzymes; R06.03 Acute respiratory distress; E11.9 Type 2 diabetes mellitus without complications; I10 Essential (primary) hypertension; Z66 Do not resuscitate; W19.XXXA Unspecified fall, initial encounter; R34 Anuria and oliguria; Z51.5 Encounter for palliative care; D64.9 Anemia, unspecified; R07.9 Chest pain, unspecified; Z92.21 Personal history of antineoplastic chemotherapy; Y92.129 Unspecified place in nursing home as the place of occurrence of the external cause; Z86.19 Personal history of other infectious and parasitic diseases
CPT/HCPCS: 36415; 70450; 71045; 71250; 74176; 80048; 80053; 80076; 81003; 81015; 82140; 82310; 82550; 82803; 83036; 83605; 83690; 83735; 84100; 84443; 85025; 85027; 85060; 85610; 87086; 87641; 87899; 93005; 96361; 96374; 99285; J0692; J1170; J2060; J2270; J3370; P9045